=== PATIENT | male | born 1980 | race Caucasian/White ===

== ENCOUNTER 2021-03-28 09:52 | Emergency (ER) | payer OTHER ==
[~2021-03-28] VITALS: Ht 172.7 cm; Wt 86.8 kg
[2021-03-28 10:00] VITALS: BP 133/93
--- NOTE | 2021-03-28 10:46 | NUR ---
PT STATES THAT HE HAS HAD INTERMITTENT BLOOD IN STOOL FOR A YEAR. STATES IT STARTED AGAIN 2 DAYS AGO. HE SEES RED BLOOD IN TOILET WHEN HE VOIDS. DENIES CONSTIPATION OR DIARRHEA. NO ABDOMINAL PAIN.
--- NOTE | 2021-03-28 11:01 | NUR ---
MD AT BEDSIDE PERFORMING RECTAL EXAM. EXPLAINING TO PT THAT HE SEES HEMORRHOIDS. PT TOLERATED WELL
== END 2021-03-28 11:28 | disposition home or self-care (01) ==
LOC: ED 11:22
DX: K64.8 Other hemorrhoids (principal)
CPT/HCPCS: 99283